=== PATIENT | female | born 1950 | race Caucasian/White ===

== ENCOUNTER 2016-05-06 09:18 | Emergency (ER) | payer OTHER ==
[2016-05-06 09:22] VITALS: BP 135/80; TEMP 98.1; BMI 25.2
[2016-05-06] MEDS ORDERED: IBUPROFEN 400 MG TABLET (FP) PO ONE ×2 (09:53→09:55)
--- NOTE | 2016-05-06 09:57 | PDOC ---
History of Present Illness - General Chief Complaint: Cold Symptoms Stated Complaint: FEVER/COUGH Time Seen by Provider: 05/06/16 09:29 History Source: Patient - History of Present Illness Timing/Duration: reports: other (4 days ago) Associated Symptoms: reports: fever/chills, headache, muscle aches. denies: cough, earache, nasal congestion, nasal drainage, shortness of breath, sore throat, wheezing Past History - Past Medical History Allergies/Adverse Reactions: Allergies Allergy/AdvReac Type Severity Reaction Status Date / Time No Known Allergies Allergy Verified 05/06/16 09:21 Home Medications: Ambulatory Orders Unobtainable [Unobtainable] 07/11/15 Cardiac Disorders: Yes HTN: Yes Hypercholesterolemia: Yes Suicide Attempt (Hx): No - Immunization History Immunization Up to Date: Yes - Psycho/Social/Smoking Cessation Hx Anxiety: No Suicidal Ideation: No Smoking Status: No Smoking History: Never smoked Number of Cigarettes Smoked Daily: 0 Hx Alcohol Use: No Drug/Substance Use Hx: No Substance Use Type: None Review of Systems - Review of Systems Constitutional: Yes: Fever, Malaise, Weakness HEENTM: No: Ear Pain, Throat Pain Respiratory: No: Cough, Shortness of Breath, Wheezing ABD/GI: No: Diarrhea, Nausea, Vomiting : No: Dysuria *Physical Exam - Vital Signs Last Vital Signs Temp Pulse Resp BP Pulse Ox 98.1 F 106 H 18 135/80 99 05/06/16 09:19 05/06/16 09:19 05/06/16 09:19 05/06/16 09:19 05/06/16 09:19 - Physical Exam General Appearance: Yes: Appropriately Dressed HEENT: positive: Normal ENT Inspection, Normal Voice. negative: Scleral Icterus (R), Scleral Icterus (L), Muffled/Hoarse voice Neck: positive: Supple. negative: Lymphadenopathy (R), Lymphadenopathy (L) Respiratory/Chest: positive: Lungs Clear, Normal Breath Sounds. negative: Respiratory Distress Cardiovascular: positive: Regular Rate, S1, S2 Gastrointestinal/Abdominal: positive: Soft. negative: Tender Integumentary: positive: Dry, Warm Neurologic: positive: Fully Oriented, Alert, Normal Mood/Affect Medical Decision Making - Medical Decision Making 05/06/16 09:54 66 yo F, denies any significant history, here with malaise with body aches w/ BROOKS and subjective fever since last night. Denies cough, shortness of breath, nausea, vomiting, diarrhea or rash. Taking otc meds w/ minimal relief. States multiple family members with similar symptoms at home. Pt ill marika with mild tachycardia w/ unremarkable exam otherwise. M/l viral syndrome, r/o influenza. pain control in ED 05/06/16 09:56 05/06/16 10:21 Influenza A on labs. Rpt HR 125 and pt now c/o nausea. Will give IVF and zofran and reassess. No indication for Tamiflu at this time, i.e. given duration and lack of comorbidities. 05/06/16 10:31 05/06/16 11:22 Vitals improved w/ IVF. Pt stable for discharge w/ discharge with supportive treatment *DC/Admit/Observation/Transfer Diagnosis at time of Disposition: Influenza A - Discharge Dispostion Disposition: HOME Condition at time of disposition: Improved - Referrals Referrals: Claudia Tirado [Primary Care Provider] - - Patient Instructions Printed Discharge Instructions: Influenza Additional Instructions: You have the flu. There is no specific treatment. Maintain adequate hydration , rest and take Motrin or Tylenol as needed for pain and/or fever. If symptoms worsen
[2016-05-06] MEDS ORDERED: SODIUM CHLORIDE 1,000 ML IV STA (10:28)
[2016-05-06] MEDS ORDERED: ONDANSETRON 4 MG/2 ML VIAL IVPUSH ONE (10:28)
[2016-05-06] MEDS ORDERED: ONDANSETRON 4 MG/2 ML VIAL ONE (10:40)
[2016-05-06 11:21] VITALS: PULSE 84
== END 2016-05-06 11:21 | disposition home or self-care (01) ==
LOC: JERFT 09:18
PROC: 3E033GC Introduction of Other Therapeutic Substance into Peripheral Vein, Percutaneous Approach (ICD-10-PCS; principal; 2016-05-06)
DX: J09.X2 Influenza due to identified novel influenza A virus with other respiratory manifestations (principal); I10 Essential (primary) hypertension; E78.00 Pure hypercholesterolemia, unspecified
CPT/HCPCS: 87804; 96374; 99282-25

== ENCOUNTER 2016-12-14 06:21 | Emergency (ER) | payer OTHER ==
[2016-12-14 07:01] VITALS: BMI 25.6
--- NOTE | 2016-12-14 07:28 | PDOC ---
History of Present Illness - General Chief Complaint: Nausea/Vomiting Stated Complaint: VOMITING Time Seen by Provider: 12/14/16 07:13 History Source: Patient Exam Limitations: No Limitations - History of Present Illness Travel History: No Initial Comments: 12/14/16 07:24 66-year-old female presents to the emergency room with complaints of sudden onset of nausea with vomiting at 9 PM last night followed by multiple episodes of brown watery stool. Patient states has mild epigastric pain without radiation to her right upper quadrant or back. Patient also denies shortness of breath, chest pain, palpitations, fever, chills, urinary complaints, recent travel or recent illness. Patient states only consumption of food was salad with pork at around 5 PM. Timing/Duration: reports: constant Quality: reports: mild, burning, cramping Abdominal Pain Onset Location: reports: epigastric Pain Radiation: reports: no radiation Activities at Onset: reports: none Aggravating Factors: improves with: None Alleviating Factors: improves with: None Past History - Travel Traveled outside of the country in the last 30 days: No - Past Medical History Allergies/Adverse Reactions: Allergies Allergy/AdvReac Type Severity Reaction Status Date / Time No Known Allergies Allergy Verified 12/14/16 06:51 Home Medications: Ambulatory Orders NK [No Known Home Medication] 12/14/16 Cardiac Disorders: Yes HTN: Yes Hypercholesterolemia: Yes Suicide Attempt (Hx): No - Immunization History Immunization Up to Date: Yes - Psycho/Social/Smoking Cessation Hx Anxiety: No Suicidal Ideation: No Smoking Status: No Smoking History: Never smoked Have you smoked in the past 12 months: No Number of Cigarettes Smoked Daily: 0 Information on smoking cessation initiated: No Hx Alcohol Use: No Drug/Substance Use Hx: No Substance Use Type: None Hx Substance Use Treatment: No Patient Lives Alone: No Lives with/in: spouse/SO Review of Systems - Review of Systems Able to Perform ROS?: Yes Constitutional: No: Symptoms Reported HEENTM: No: Symptoms Reported Respiratory: No: Symptoms reported Cardiac (ROS): No: Symptoms Reported ABD/GI: Yes: Diarrhea, Nausea, Vomiting, Abdominal cramping : No: Symptoms Reported Musculoskeletal: No: Symptoms Reported Integumentary: No: Symptoms Reported Neurological: No: Symptoms reported Hematologic/Lymphatic: No: Symptoms Reported *Physical Exam - Vital Signs Last Vital Signs Temp Pulse Resp BP Pulse Ox 98.5 F 99 H 18 155/89 100 12/14/16 06:49 12/14/16 06:49 12/14/16 06:49 12/14/16 06:49 12/14/16 06:49 - Physical Exam General Appearance: Yes: Nourished, Appropriately Dressed. No: Apparent Distress HEENT: positive: EOMI, OLEG. negative: Pale Conjunctivae Neck: positive: Supple Respiratory/Chest: positive: Lungs Clear, Normal Breath Sounds. negative: Respiratory Distress, Accessory Muscle Use Cardiovascular: positive: Regular Rhythm, Regular Rate (88). negative: Murmur Gastrointestinal/Abdominal: positive: Normal Bowel Sounds, Soft, Tenderness ( mild epigastric). negative: Distended, Guarding, Rebound Musculoskeletal: negative: CVA Tenderness Extremity: positive: Normal Capillary Refill. negative: Pedal Edema Integumentary: positive: Normal Color, Warm, Moist Neurologic: positive: Normal Mood/Affect, Motor Strength 5/5 (ambulatory) ED Treatment Course - LABORATORY CBC & Chemistry Diagram: 12/14/16 07:40 12/14/16 07:40 Medical Decision Making - Medical Decision Making 12/14/16 07:42 Patient with sudden onset of nausea vomiting followed by diarrhea and now with complaints of dehydration and epigastric pain. Patient on exam had mild epigastric pain with no right upper quadrant pain. Patient will be ordered for labs, urine, antiemetics, Protonix and IV fluids. 12/14/16 09:43 Laboratory Tests 12/14/16 12/14/16 12/14/16 07:40 07:40 07:40 WBC 8.1 Hgb 12.2 Hct 37.0 Neutrophils % 81.2 Sodium 140 Potassium 3.7 Chloride 105 Carbon Dioxide 27 Anion Gap 8 Creatinine 0.6 Creat Clearance w eGFR > 60 Random Glucose 99 Calcium 9.1 Total Bilirubin 0.6 AST 23 ALT 28 Alkaline Phosphatase 98 Lipase 152 12/14/16 10:56 Laboratory Tests 12/14/16 10:19 Urine Ketones Trace H Ur Leukocyte Esterase Negative Patient states feeling much better has no complaints presently. Patient to be discharged home with Zofran and told to eat a bland diet for the next 72 hours. Patient also be given instructions to symptoms return or worsen to come back to the ER . otherwise she can follow up with her PCP. *DC/Admit/Observation/Transfer Diagnosis at time of Disposition: Nausea & vomiting Qualifiers: Vomiting Intractability: unspecified Nausea & vomiting Qualifiers: Vomiting Intractability: unspecified - Discharge Dispostion Disposition: HOME - Patient Instructions Printed Discharge Instructions: DI for Nausea -- Adult, DI for Vomiting -- Adult Additional Instructions: Please continue with a bland diet for the next 72 hours. May take Zofran as needed for nausea. Please return to ED if symptoms worsen.
[2016-12-14] MEDS ORDERED: PANTOPRAZOLE SODIUM 40 MG in SODIUM CHLORIDE 100 ML IVPB ONE (07:29)
[2016-12-14] MEDS ORDERED: ONDANSETRON 4 MG/2 ML VIAL IVPUSH ONE (07:29)
[2016-12-14] MEDS ORDERED: SODIUM CHLORIDE 1,000 ML IV STA (07:29)
[2016-12-14] MEDS ORDERED: PANTOPRAZOLE SODIUM 100 ML IVPB ONE (07:46)
[2016-12-14] MEDS ORDERED: ONDANSETRON 4 MG/2 ML VIAL ONE (07:47)
[2016-12-14 08:04] LABS: BASOPHIL 0.6 % (0-2.0); EOSINOPHIL 0.3 % (0-4.5); MCH 28.3 pg (25.7-33.7); MCHC 32.9 g/dl (32.0-36.0); MEAN PLT VOLUME 7.7 fl (7.5-11.1); NEUTROPHILS 81.2 % (42.8-82.8); PLATELET COUNT 317 K/MM3 (134-434); RDW 14.2 % (11.6-15.6); WHITE BLOOD COUNT 8.1 K/mm3 (4.0-10.0)
[2016-12-14 08:18] LABS: ALK PHOS 98 U/L (45-117); ANION GAP 8 (8-16); BILIRUBIN,TOTAL 0.6 mg/dL (0.2-1.0); CALCIUM 9.1 mg/dL (8.5-10.1); CO2 27 mmol/L (21-32); CREATININE 0.6 mg/dL (0.55-1.02); GLUCOSE,RANDOM 99 mg/dL (74-106); SGOT/AST 23 U/L (15-37); SGPT/ALT 28 U/L (12-78); TOT PROT 7.8 g/dl (6.4-8.2)
[2016-12-14 10:26] LABS: URINE APPEARANCE CLEAR; URINE BILIRUBIN NEGATIVE (NEGATIVE); URINE BLOOD NEGATIVE (NEGATIVE); URINE COLOR LTYELLOW; URINE GLUCOSE (UA) NEGATIVE (NEGATIVE); URINE KETONE TRACE (NEGATIVE); URINE LEUK ESTERASE NEGATIVE (NEGATIVE); URINE NITRITE NEGATIVE (NEGATIVE); URINE PROTEIN NEGATIVE (NEGATIVE); URINE UROBILINOGEN NEGATIVE mg/dL (0.2-1.0)
[2016-12-14 11:18] VITALS: BP 131/90; PULSE 88; TEMP 97.8
== END 2016-12-14 11:18 | disposition home or self-care (01) ==
LOC: JER 06:21
PROC: 3E033GC Introduction of Other Therapeutic Substance into Peripheral Vein, Percutaneous Approach (ICD-10-PCS; principal; 2016-12-14)
PROC: 3E0337Z Introduction of Electrolytic and Water Balance Substance into Peripheral Vein, Percutaneous Approach (ICD-10-PCS; 2016-12-14)
DX: R11.2 Nausea with vomiting, unspecified (principal); I51.9 Heart disease, unspecified; I10 Essential (primary) hypertension; E78.00 Pure hypercholesterolemia, unspecified
CPT/HCPCS: 36415; 80053; 81003; 83690; 85025; 99282-25

== ENCOUNTER 2017-01-12 11:33 | Emergency (ER) | payer OTHER ==
--- NOTE | 2017-01-12 11:47 | PDOC ---
History of Present Illness - General History Source: Patient Exam Limitations: No Limitations - History of Present Illness Initial Comments: 01/12/17 12:35 The patient is a 66 year old female, with a significant past medical history of HLD who presents to the emergency department s/p mechanical fall. Patent states she hit her forehead on the concrete and reports LOC. Bystander assisted her from the floor and the ambulance arrived to the scene. Patient reports headache however denies any nausea, vomiting, light/sound sensitivity. Patient denied any weakness, numbness or tingling. She denies chest pain, headache or dizziness. She denies fever, chills, abdominal pain, nausea, vomit, diarrhea or constipation. She denies dysuria, frequency, urgency or hematuria. PCP: Dr. Jackson Guerra <Lolis Grimaldo - Last Filed: 01/12/17 13:14> <Miracle Gonzalez - Last Filed: 01/12/17 13:45> - General Stated Complaint: FALL Time Seen by Provider: 01/12/17 11:47 Past History <Lolis Grimaldo - Last Filed: 01/12/17 13:14> - Past Medical History Cardiac Disorders: Yes HTN: Yes Hypercholesterolemia: Yes - Immunization History Immunization Up to Date: Yes - Suicide/Smoking/Psychosocial Hx Smoking Status: No Smoking History: Never smoked Have you smoked in the past 12 months: No Number of Cigarettes Smoked Daily: 0 Hx Alcohol Use: No Drug/Substance Use Hx: No Substance Use Type: None Hx Substance Use Treatment: No <Miracle Gonzalez - Last Filed: 01/12/17 13:45> - Past Medical History Allergies/Adverse Reactions: Allergies Allergy/AdvReac Type Severity Reaction Status Date / Time No Known Allergies Allergy Verified 12/14/16 06:51 Review of Systems - Review of Systems Able to Perform ROS?: Yes Comments:: 01/12/17 12:36 GENERAL/CONSTITUTIONAL: No fever or chills. No weakness. HEAD, EYES, EARS, NOSE AND THROAT: No change in vision. No ear pain or discharge. No sore throat. CARDIOVASCULAR: No chest pain or shortness of breath. RESPIRATORY: No cough, wheezing, or hemoptysis. GASTROINTESTINAL: No nausea, vomiting, diarrhea or constipation. GENITOURINARY: No dysuria, frequency, or change in urination. MUSCULOSKELETAL: No joint or muscle swelling or pain. No neck or back pain. SKIN: No rash NEUROLOGIC: +headache + LOC. No vertigo or change in strength/sensation. ENDOCRINE: No increased thirst. No abnormal weight change. HEMATOLOGIC/LYMPHATIC: No anemia, easy bleeding, or history of blood clots. ALLERGIC/IMMUNOLOGIC: No hives or skin allergy. <Lolis Grimaldo - Last Filed: 01/12/17 13:14> *Physical Exam - Vital Signs Last Vital Signs Temp Pulse Resp BP Pulse Ox 98 F 91 H 20 165/98 100 01/12/17 12:05 01/12/17 12:05 01/12/17 12:05 01/12/17 12:05 01/12/17 12:05 - Physical Exam Comments: 01/12/17 12:36 GENERAL: Awake, alert, and fully oriented, in no acute distress HEAD: No signs of trauma EYES: PERRLA, EOMI, sclera anicteric, conjunctiva clear ENT: Auricles normal inspection, hearing grossly normal, nares patent, oropharynx clear without exudates. Moist mucosa NECK: Normal ROM, supple, no lymphadenopathy, JVD, or masses LUNGS: Breath sounds equal, clear to auscultation bilaterally. No wheezes, and no crackles HEART: Regular rate and rhythm, normal S1 and S2, no murmurs, rubs or gallops ABDOMEN: Soft, nontender, normoactive bowel sounds. No guarding, no rebound. No masses EXTREMITIES:+ Abrasion to R knee. Normal range of motion, no edema. No clubbing or cyanosis. No cords, erythema, or tenderness NEUROLOGICAL: + R paraspinal back tenderness. Cranial nerves II through XII grossly intact. Normal speech, normal gait SKIN: Warm, Dry, normal turgor, no rashes or lesions noted. <Lolis Grimaldo - Last Filed: 01/12/17 13:14> ED Treatment Course - Medications Given in the ED: ED Medications Discontinued Medications Generic Name Dose Route Start Last Admin Trade Name Freq PRN Reason Stop Dose Admin Acetaminophen 650 mg 01/12/17 12:05 01/12/17 12:20 Tylenol - PO 01/12/17 12:06 650 mg ONCE ONE Administration <Lolis Grimaldo - Last Filed: 01/12/17 13:14> Medical Decision Making - Medical Decision Making 01/12/17 13:[address] Impression: No acute pathology. No acute intracranial hemorrhage or acute skull fracture. No mass effect, midline shift or hydrocephalus. Reported by: Elle Sprague MD <Lolis Grimaldo - Last Filed: 01/12/17 13:14> - Medical Decision Making 01/12/17 13:42 Pt presents to the ED complaining of mechanical trip and fall. Patient feel frontwards, hit her head and had LOC. Denies other complaints except for paraspinal neck pain. Ct head performed to rule out intracranial hemorrhage and is negative. Will discharge home. <Miracle Gonzalez - Last Filed: 01/12/17 13:45> *DC/Admit/Observation/Transfer - Attestations Scribe Attestion: 01/12/17 12:36 Documentation prepared by Lolis Grimaldo, acting as medical writer for Miracle Gonzalez MD, /DO. <Lolis Grimaldo - Last Filed: 01/12/17 13:14> - Discharge Dispostion Admit: No <Miracle Gonzalez - Last Filed: 01/12/17 13:45> Diagnosis at time of Disposition: Concussion Qualifiers: Encounter type: initial encounter Loss of consciousness presence/duration: with LOC of 30 min or less Qualified Code(s): S06.0X1A - Concussion with loss of consciousness of 30 minutes or less, initial encounter - Discharge Dispostion Disposition: HOME Condition at time of disposition: Good - Referrals Referrals: Jackson Guerra MD [Primary Care Provider] - - Patient Instructions Printed Discharge Instructions: DI for Concussion Additional Instructions: return to the ED for severe pain, passing out, severe nausea and vomiting. Follow up with your doctor. It is not unusual to have mild headache or dizziness after a concussion but you should return to the ED for severe symptoms.
[2017-01-12] MEDS ORDERED: ACETAMINOPHEN 325 MG TABLET (FP) PO ONE (12:05)
[2017-01-12 12:12] VITALS: BMI 25.9
[2017-01-12] MEDS ORDERED: ACETAMINOPHEN 325 MG TABLET (FP) ONE (12:24)
[2017-01-12 14:11] VITALS: BP 140/85; PULSE 85; TEMP 98.1
== END 2017-01-12 14:20 | disposition home or self-care (01) ==
LOC: JER 11:33
DX: S06.0X1A Concussion with loss of consciousness of 30 minutes or less, initial encounter (principal); W18.39XA Other fall on same level, initial encounter; Y93.89 Activity, other specified; Y92.410 Unspecified street and highway as the place of occurrence of the external cause; E78.5 Hyperlipidemia, unspecified; I10 Essential (primary) hypertension
CPT/HCPCS: 70450-TC; 99282-25

== ENCOUNTER 2019-01-16 19:04 | Emergency (ER) | payer OTHER ==
[2019-01-16 19:13] VITALS: BP 154/96; PULSE 89; TEMP 98.3; BMI 24.3
--- NOTE | 2019-01-16 19:15 | PDOC ---
Rapid Medical Evaluation Chief Complaint: Injury Time Seen by Provider: 01/16/19 19:07 Medical Evaluation: Allergies Allergy/AdvReac Type Severity Reaction Status Date / Time No Known Allergies Allergy Verified 12/14/16 06:51 Vital Signs Temp Pulse Resp BP Pulse Ox 98.3 F 89 16 154/96 98 01/16/19 19:08 01/16/19 19:08 01/16/19 19:08 01/16/19 19:08 01/16/19 19:08 01/16/19 19:12 I have performed a brief in-person evaluation of this patient. The patient presents with a chief complaint of: slipped and fell yesterday at store,. States has become more sore ot right side and hip. No LOC, No head injury. Took tylenol only last pm Pertinent physical exam findings: large hematoma right ischial tub.- no other contusions / deformities noted triaged I have ordered the following: nothing The patient will proceed to the ED for further evaluation. Discharge Disposition - Diagnosis Fall - Discharge Dispostion Condition at time of disposition: Stable - Referrals - Patient Instructions - Post Discharge Activity
[2019-01-16] MEDS ORDERED: IBUPROFEN 600 MG TABLET (FP) PO ONE ×2 (19:57→20:00)
--- NOTE | 2019-01-16 20:02 | PDOC ---
History of Present Illness - General Chief Complaint: Injury Stated Complaint: FALL Time Seen by Provider: 01/16/19 19:07 History Source: Patient - History of Present Illness Initial Comments: 01/16/19 20:04 Chief complaint: Fall Patient is a 68-year-old female with history of gastritis who states she was in the store yesterday and slipped and fell backwards, falling on her right side. She states that shopping cart fell on top of her. Patient denies any head injury or LOC. Patient is ambulatory. She states she took Tylenol yesterday. Patient is not on any blood thinners. GENERAL/CONSTITUTIONAL: No fever, weakness. dizziness HEAD, EYES, EARS, NOSE AND THROAT: No change in vision. No ear pain or discharge. No sore throat. CARDIOVASCULAR: No chest pain RESPIRATORY: No shortness of breath or cough GASTROINTESTINAL: No pain, nausea, vomiting, diarrhea or constipation GENITOURINARY: No dysuria MUSCULOSKELETAL: + neck or back pain, +right hip, ribs SKIN: No rash NEUROLOGIC: No headache, vertigo, loss of consciousness, or loss of sensation. GENERAL: The patient is awake, alert, and fully oriented, in no acute distress. HEAD: Normal with no signs of trauma. EYES: Pupils equal, round and reactive to light, sclera anicteric, conjunctiva clear. ENT: pharynx: no erythema, no exudate, uvula midline NECK: supple CHEST: clear, mild right axilla mid rib tender, no subcutaneous emphysema, no bruising, rr ABD: soft, nontender BACK: no tenderness or signs of injury EXTREMITIES: Right proximal thigh with approximately 4 cm area of bruising, no deformity, good range of motion, minimal tenderness, neurovascular intact. Rest of extremities, normal range of motion, no edema. NEUROLOGICAL: Normal speech, normal gait. Cranial nerves II through XII grossly intact, no gross focal abnormalities SKIN: Warm, Dry Past History - Past Medical History Allergies/Adverse Reactions: Allergies Allergy/AdvReac Type Severity Reaction Status Date / Time No Known Allergies Allergy Verified 12/14/16 06:51 Home Medications: Ambulatory Orders NK [No Known Home Medication] 01/12/17 Cardiac Disorders: Yes COPD: No HTN: Yes Hypercholesterolemia: Yes - Immunization History Immunization Up to Date: Yes - Psycho Social/Smoking Cessation Hx Smoking Status: No Smoking History: Never smoked Have you smoked in the past 12 months: No Number of Cigarettes Smoked Daily: 0 Information on smoking cessation initiated: No Hx Alcohol Use: No Drug/Substance Use Hx: No Substance Use Type: None Hx Substance Use Treatment: No *Physical Exam - Vital Signs Last Vital Signs Temp Pulse Resp BP Pulse Ox 98.3 F 89 16 154/96 98 01/16/19 19:08 01/16/19 19:08 01/16/19 19:08 01/16/19 19:08 01/16/19 19:08 ED Treatment Course - RADIOLOGY Radiology Studies Ordered: Category Date Time Status HIP & PELVIS-RIGHT [RAD] Stat Radiology 01/16/19 19:56 Ordered RIBS RIGHT SIDE [RAD] Stat Radiology 01/16/19 19:56 Ordered Medical Decision Making - Medical Decision Making 01/16/19 20:30 68-year-old female with a history of gastritis and a mechanical fall yesterday in a supermarket when she slipped landing on her right hip/buttocks area and also complaining of right rib pain. Patient is also complaining of other nonspecific body aches but only areas that clinically require imaging on the hip and the ribs. Although patient has history of gastritis, she states she can take Motrin. We will give her Motrin here and do x-rays and reassess. X-rays of the hip and the ribs show no acute injury. Discussed issues, findings, results, applicable medications and treatments and follow-up. All these were understood and all questions were answered Discharge - Discharge Information Problems reviewed: Yes Clinical Impression/Diagnosis: Fall Qualifiers: Encounter type: initial encounter Qualified Code(s): W19.XXXA - Unspecified fall, initial encounter Contusion of hip, right Qualifiers: Encounter type: initial encounter Qualified Code(s): S70.01XA - Contusion of right hip, initial encounter Contusion of rib on right side Qualifiers: Encounter type: initial encounter Qualified Code(s): S20.211A - Contusion of right front wall of thorax, initial encounter Condition: Stable Disposition: HOME - Admission No - Follow up/Referral Referrals: Jackson Guerra MD [Primary Care Provider] - Yordan Lewis MD [Staff Physician] - - Patient Discharge Instructions Patient Printed Discharge Instructions: Contusion Additional Instructions: You will be very sore You can apply ice for 20 minutes every 2 hours for the next 2 days Motrin 600 mg every 6 hours for pain. Call the orthopedist tomorrow - Post Discharge Activity
== END 2019-01-16 20:37 | disposition home or self-care (01) ==
LOC: JERFT 19:04
DX: S20.211A Contusion of right front wall of thorax, initial encounter (principal); S70.01XA Contusion of right hip, initial encounter; W01.198A Fall on same level from slipping, tripping and stumbling with subsequent striking against other object, initial encounter; Y93.89 Activity, other specified; Y92.512 Supermarket, store or market as the place of occurrence of the external cause; Y99.8 Other external cause status; I10 Essential (primary) hypertension; E78.00 Pure hypercholesterolemia, unspecified
CPT/HCPCS: 71101-TC-RT-FY; 73523-TC-FY; 99281-25

== ENCOUNTER 2020-06-27 16:30 | Emergency (ER) | payer OTHER ==
[2020-06-27 16:35] VITALS: BP 126/78; PULSE 100; TEMP 98; BMI 24.3
[2020-06-27] MEDS ORDERED: ONDANSETRON 4 MG/2 ML VIAL IVPUSH ONE (17:12)
[2020-06-27] MEDS ORDERED: FAMOTIDINE 20 MG/50 ML IVPB 20 MG/50 ML MG IVPB ONE ×2 (17:12→17:33)
[2020-06-27] MEDS ORDERED: LACTATED RINGERS SOLUTION 1000 ML INFUS.BAG IV ONE (17:12)
[2020-06-27] MEDS ORDERED: ACETAMINOPHEN 325 MG TABLET (FP) PO ONE (17:12)
[2020-06-27] MEDS ORDERED: MAG HYDROX/AL HYDROX/SIMETH -MYLANTA- ORAL SUSPENSION PO ONE (17:13)
[2020-06-27 17:28] LABS: BASO % 0.2 % (0-2.0); EOS % 1.6 % (0-4.5); HEMATOCRIT 31.8 % (32.4-45.2); HEMOGLOBIN 10.5 GM/dL (10.7-15.3); LYMPH % 26.6 % (8-40); MCH 28.7 pg (25.7-33.7); MEAN PLT VOLUME 8.1 fl (7.5-11.1); MONO % 10.1 % (3.8-10.2); NEUT % 61.5 % (42.8-82.8); PLATELET COUNT 295 K/MM3 (134-434); RBC 3.65 M/mm3 (3.60-5.2); RDW 14.2 % (11.6-15.6)
[2020-06-27] MEDS ORDERED: ACETAMINOPHEN 325 MG TABLET (FP) ONE (17:32)
[2020-06-27] MEDS ORDERED: MAG HYDROX/AL HYDROX/SIMETH 30 ML UNIT-DOSE CUP ONE (17:33)
[2020-06-27] MEDS ORDERED: ONDANSETRON 4 MG/2 ML VIAL ONE (17:33)
[2020-06-27 17:36] LABS: INR 0.98 (0.83-1.09); PROTHROMBIN TIME (PATIENT) 11.9 SEC (9.7-13.0)
[2020-06-27 17:38] LABS: ACTIVATED PTT 33.1 SECONDS (25.2-36.5)
[2020-06-27 17:51] LABS: CHLORIDE 108 mmol/L (98-107); POTASSIUM 4.3 mmol/L (3.5-5.1); SODIUM 141 mmol/L (136-145)
[2020-06-27 17:54] LABS: ALBUMIN 3.5 g/dl (3.4-5.0); ANION GAP 5 MMOL/L (8-16); BLOOD UREA NITROGEN 16.3 mg/dL (7-18); CALCIUM 8.6 mg/dL (8.5-10.1); CO2 29 mmol/L (21-32); GLUCOSE,RANDOM 107 mg/dL (74-106); LIPASE 932 U/L (73-393); MAGNESIUM 1.9 mg/dL (1.8-2.4)
[2020-06-27 17:57] LABS: CREATININE 0.8 mg/dL (0.55-1.3); SGOT/AST 15 U/L (15-37); SGPT/ALT 19 U/L (13-61)
[2020-06-27 17:58] LABS: BILIRUBIN,TOTAL 0.2 mg/dL (0.2-1)
[2020-06-27 17:59] LABS: TOT PROT 6.8 g/dl (6.4-8.2)
[2020-06-27 18:00] LABS: ALK PHOS 81 U/L (45-117)
[2020-06-27 18:55] LABS: CHOLESTEROL 196 mg/dL (50-200); TRIGLYCERIDES 210 mg/dL (0-150)
[2020-06-27 18:56] LABS: LDL CHOLESTEROL (ONLY SJRH) 102 mg/dL (5-100)
[2020-06-27 18:58] LABS: HDL CHOLESTEROL 62 mg/dL (40-60)
== END 2020-06-27 21:10 | disposition home or self-care (01) ==
LOC: JER 16:30
PROC: 3E033NZ Introduction of Analgesics, Hypnotics, Sedatives into Peripheral Vein, Percutaneous Approach (ICD-10-PCS; principal; 2020-06-27)
PROC: 3E033GC Introduction of Other Therapeutic Substance into Peripheral Vein, Percutaneous Approach (ICD-10-PCS; 2020-06-27)
DX: R10.84 Generalized abdominal pain (principal); R19.7 Diarrhea, unspecified; R11.0 Nausea
CPT/HCPCS: 36415; 71045-TC-FY; 74177-TC; 80053; 80061; 82550; 83690; 83721; 83735; 84484; 85025; 85610; 85730; 93005; 93010; 99285-25; Q9967